=== PATIENT | male | born 1950 | race Caucasian/White ===

== ENCOUNTER 2019-04-17 15:19 | Outpatient (CLI) | payer MEDICARE, SELFPAY ==
--- NOTE | ~2019-04-17 | XR_ITS ---
EXAMINATION: XR abdomen/kub 1V INDICATION: Microscopic hematuria TECHNIQUE: Supine views of the abdomen were obtained on 2 radiographs. COMPARISON: CT, 09/30/2018 FINDINGS: Bowel contents project over the kidneys limiting sensitivity for renal stones. The left kid elham stone described on the comparison CT examination is not definitely identified. No definite urinar y tract calculi are seen. There is advanced right and mild left hip osteoarthritis. IMPRESSION: 1. No definite urinary tract calculi seen. Reviewed, dictated and finalized at location A. [employer]
== END 2019-04-17 15:20 | disposition home or self-care (01) ==
LOC: ANHIMG 15:26
PROVIDERS: Visit Provider Urology
DX: R31.29 Other microscopic hematuria (principal)
CPT/HCPCS: 74018

== ENCOUNTER → 2019-10-23 13:41 | Outpatient (CLI) | payer MEDICARE, SELFPAY ==
--- NOTE | ~2019-10-23 | XR_ITS ---
EXAMINATION: XR abdomen/kub 1V INDICATION: History of kidney stones TECHNIQUE: Supine views of the abdomen were obtained on 2 radiographs. COMPARISON: 04/17/2019 FINDINGS: No urolithiasis is identified. The bowel gas pattern is normal. There is advanced right and mild left hip osteoarthritis. A moderate volume of colonic stool is present. IMPRESSION: 1. No urolithiasis identified. Reviewed, dictated and finalized at location A.
== END ==
PROVIDERS: PCP Family Medicine; Visit Provider Urology
DX: Z87.442 Personal history of urinary calculi (principal)
CPT/HCPCS: 74018

== ENCOUNTER → 2019-10-23 13:43 | Outpatient (CLI) | payer MEDICARE, SELFPAY ==
--- NOTE | ~2019-10-23 | XR_ITS ---
EXAMINATION: XR chest 2V DATE: 10/23/2019 13:58 INDICATION: Shortness of breath. TECHNIQUE: Frontal and lateral views of the chest were obtained. COMPARISON: Chest 2 views 07/01/2015 FINDINGS: The chest demonstrates clear lungs without pneumonia, pleural effusion, or pneumothorax. Th e heart size is normal. IMPRESSION: 1. No acute cardiopulmonary disease. Reviewed, dictated and finalized at location A.
== END ==
PROVIDERS: PCP Family Medicine; Visit Provider Family Medicine
DX: R06.02 Shortness of breath (principal)
CPT/HCPCS: 71046

== ENCOUNTER 2021-07-26 08:11 | Emergency (ER) | payer MEDICARE, SELFPAY ==
--- NOTE | ~2021-07-26 | XR_ITS ---
XR abdomen/kub 1V 07/26/2021 08:58 INDICATION: Possible kidney stones. Blood in urine. TECHNIQUE: KUB COMPARISON: 10/23/2019 FINDINGS: Bowel gas pattern is normal. Moderate lumbar spondylosis. There is no evidence of free air, mass, organomegaly, ascites or obstruction. No abnormal calculi are seen. There is advanced osteoar thritis of the hips, right greater than left. Mild lumbar spondylosis. IMPRESSION: 1: No acute abdominal abnormality identified. Reviewed, dictated and finalized at location A.
[2021-07-26 08:22] VITALS: BP 143/82; PULSE 67; RESP 18; TEMP 36.8; O2SAT 100
--- NOTE | 2021-07-26 08:30 | ED.MALEGU ---
HPI - Male Genitourinary General Chief complaint: Urogenital-Male Stated complaint: UTI Time Seen by Provider: 07/26/21 08:31 Source: patient and RN notes reviewed Mode of arrival: ambulatory Limitations: no limitations History of Present Illness HPI Narrative: 70 y/o male presented for c/o blood in urine, painful urination, frequency and hesitancy, onset yesterday. He states yesterday he felt yucky with subjective fever. Last night he noticed the blood in his urine which caused hesitancy and pain. Around 0200 the pain subsided. He has been urinating this morning without pain but in small amounts. 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 Endorses history of renal stones, and similar symptoms about 2 to 3 years ago, diagnosed with UTI, has seen urology and completed a scope. He has been compliant with Flomax. Denies nausea, vomiting, diarrhea, abdominal pain or flank pain. Related Data Home Medications Medication Instructions Recorded Confirmed amlodipine 10 mg tablet 10 tablet PO DAILY 07/26/21 07/26/21 atorvastatin 10 mg tablet 10 tablet PO DAILY 07/26/21 07/26/21 citalopram 40 mg tablet 40 tablet PO DAILY 07/26/21 07/26/21 indapamide 1.25 mg tablet 1.25 tablet PO DAILY 07/26/21 07/26/21 levocetirizine 5 mg tablet 5 tablet PO DAILY 07/26/21 07/26/21 montelukast 10 mg tablet 10 tablet PO DAILY 07/26/21 07/26/21 rivaroxaban 20 mg tablet (Xarelto) 20 tablet PO DAILY 07/26/21 07/26/21 tamsulosin 0.4 mg capsule 0.4 cap PO DAILY 07/26/21 07/26/21 Allergies Allergy/AdvReac Type Severity Reaction Status Date / Time No Known Allergies Allergy Verified 07/26/21 08:26 Review of Systems Review of Systems: CONSTITUTIONAL: Denies body aches, chills, or sweats. CARDIOVASCULAR: Denies chest pain, palpitations, or edema. RESPIRATORY: Denies cough or dyspnea. GASTROINTESTINAL: Denies abdominal pain, nausea, vomiting, or diarrhea. GENITOURINARY: Reports dysuria, frequency, urgency, hematuria SKIN: Denies rash, itching, or wounds. MUSCULOSKELETAL: Denies back pain or myalgia. Const: Reports as per HPI : Yes as per HPI [facility] Social History Social History Smoking status: Never smoker Comments At time of signature, I have reviewed and agree with nursing past medical, surgical, social and family history unless otherwise noted. Please see nursing chart for further information. There is no relevant family history pertinent to the presenting complaint Exam Narrative: GENERAL: Well-appearing, morbidly obese, no acute distress. HEAD: Normocephalic EYES: EOMI. . ENT: Mucous membranes pink and moist. NECK: Normal AROM. Supple. CHEST: No respiratory distress. Clear to auscultation. HEART: Regular rate and rhythm. ABDOMEN: Soft, large limits exam nontender, normal active bowel sounds. No CVA tenderness MUSCULOSKELETAL: No bony tenderness. SKIN: Warm, dry, no rash. NEURO: No focal deficits. Alert and oriented x3. PSYCH: Normal affect. No signs of depression or anxiety. Course Course Emergency Course: Patient is aware of diagnosis, understands and agrees to treatment plan. Anticipatory guidance given. Patient agrees to follow-up as directed and is aware of reasons to seek care at the emergency department. Portions of this record may have been created with voice recognition software Level of Care: Express Care Visit Vital Signs Vital signs: Vital Signs Temperature 98.3 F 07/26/21 08:22 Pulse Rate 67 07/26/21 08:22 Respiratory Rate 18 07/26/21 08:22 Blood Pressure 143/82 H 07/26/21 08:22 Pulse Oximetry 100 07/26/21 08:22 Oxygen Delivery Room Air 07/26/21 08:22 Temperature 98.3 F 07/26/21 08:22 Pulse Rate 67 07/26/21 08:22 Respiratory Rate 18 07/26/21 08:22 Blood Pressure 143/82 H 07/26/21 08:22 Pulse Oximetry 100 07/26/21 08:22 Oxygen Delivery Room Air 07/26/21 08:22 Reviewed MDM - Male Ge
== END 2021-07-26 09:30 | disposition home or self-care (01) ==
PROVIDERS: Emergency Provider Nurse Practitioner Family
DX: N39.0 Urinary tract infection, site not specified (principal); Z86.711 Personal history of pulmonary embolism; Z79.01 Long term (current) use of anticoagulants; E78.00 Pure hypercholesterolemia, unspecified; I10 Essential (primary) hypertension
CPT/HCPCS: 74018; 81003; 87077; 87086; 87186; 99213; G0463